=== PATIENT | female | born 2000 | race Caucasian/White ===

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

== ENCOUNTER 2020-07-22 00:58 | Emergency (ER) | payer OTHER, SELFPAY ==
[2020-07-22] VITALS (7 sets, daily range): BP systolic 103–116; BP diastolic 61–63; PULSE 62–73; RESP 15–24; TEMP 37.2; O2SAT 98–99
--- NOTE | 2020-07-22 01:20 | DI.RAD.S_ITS ---
PROCEDURE: XR CHEST 1V INDICATIONS: Acute altered mental status TECHNIQUE: One view of the chest was acquired. COMPARISON: None. FINDINGS: Surgical changes and devices: None. Lungs and pleura: Lungs are clear. No pleural effusions or pneumothorax. Mediastinum: Mediastinal contours appear normal. Heart size is normal. Bones and chest wall: No suspicious bony lesions. Overlying soft tissues appear unremarkable. IMPRESSION: No acute cardiopulmonary disease process. Dictated by: Jessica Holguin MD, PhD on 07/22/2020 at 9:10 Approved by: Jessica Holguin MD, PhD on 07/22/2020 at 9:10
[2020-07-22 01:29] LABS: Add Manual Diff / Slide Review NO; Basophils Absolute Auto 0 /uL (0-100); Basophils Percent Auto 0.6 % (0-2); Eosinophils Absolute Auto 200 /uL (0-450); Eosinophils Percent Auto 2.4 % (2-4); Hemoglobin 12.4 g/dL (12.0-16.0); Lymphocytes Absolute Auto 2400 /uL (1100-4500); Lymphocytes Percent Auto 30.6 % (25-40); Mean Corpuscular HGB Conc 33.4 % (30-36); Mean Corpuscular Hemoglobin 29.9 PG (26-34); Mean Corpuscular Volume 89.6 fL (80-100); Monocytes Absolute Auto 700 /uL (0-900); Monocytes Percent Auto 8.9 % (3-14); Neutrophils Absolute Auto 4600 /uL (1500-7000); Neutrophils Percent Auto 57.5 % (50-75); Platelet Count 222 X10^3/uL (150-400); Red Blood Cell Count 4.13 X10^6/uL (4.0-5.2); Red Cell Distribution Width 13.1 % (11.6-14.8)
[2020-07-22 01:35] LABS: Alanine Aminotransferase 15 IU/L (<35); Albumin 3.8 g/dL (3.5-5.0); Albumin Globulin Ratio 1.4 (1.0-2.8); Alkaline Phosphatase 113 U/L (38-126); Aspartate Aminotransferase 29 IU/L (14-36); BUN Creatinine Ratio 5.6 (6-22); Bilirubin Total 0.1 mg/dL (0.2-1.3); Blood Urea Nitrogen 4 mg/dL (7-17); Calcium 8.3 mg/dL (8.4-10.2); Carbon Dioxide 27 mmol/L (22-32); Chloride 106 mmol/L (98-107); Estimated Glomerular Filt Rate > 60.0 mL/min (>60); Globulin 2.8 g/dL (1.7-4.1); Glucose 119 mg/dL (70-100); HEMOLYSIS < 15 (0-50); Potassium 4.1 mmol/L (3.4-5.1); Sodium 137 mmol/L (137-145); Total Protein 6.6 g/dL (6.3-8.2)
--- NOTE | 2020-07-22 02:11 | DI.RAD.S_ITS ---
PROCEDURE: XR CERVICAL SPINE 2V OR 3V INDICATIONS: Trauma/fall/pain TECHNIQUE: 3 view(s) of the cervical spine were acquired. COMPARISON: None. FINDINGS: Bones: No fractures or dislocations to the T1 level. The lateral masses of C1 appear intact on the odontoid view. No suspicious bony lesions. Soft tissues: No prevertebral soft tissue swelling. IMPRESSION: No fracture. No osseous lesion. If symptoms and/or clinical suspicion for pathology persists, evaluation with MRI should be considered for further assessment. Dictated by: Jessica Holguin MD, PhD on 07/22/2020 at 9:10 Approved by: Jessica Holguin MD, PhD on 07/22/2020 at 9:11
--- NOTE | 2020-07-22 02:11 | DI.CT.S_ITS ---
PROCEDURE: CT HEAD/BRAIN WO CON INDICATIONS: Trauma/fall/pain/syncope TECHNIQUE: Noncontrast 4.5 mm thick angled axial sections acquired from the foramen magnum to the vertex, with coronal and sagittal reformats. For radiation dose reduction, the following was used: automated exposure control, adjustment of mA and/or kV according to patient size. COMPARISON: None. FINDINGS: Image quality: Excellent. CSF spaces: Basal cisterns are patent. No extra-axial fluid collections. Ventricles are normal in size and shape. Brain: No midline shift. No intracranial masses or hemorrhage. Terry-white matter interface is normal. Skull and face: Calvarium and visualized facial bones are intact, without suspicious lesions. Sinuses: Visualized sinuses and mastoids are clear. IMPRESSION: No acute intracranial disease process. Dictated by: Jessica Holguin MD, PhD on 07/22/2020 at 7:23 Approved by: Jessica Holguin MD, PhD on 07/22/2020 at 7:25
--- NOTE | 2020-07-22 02:12 | ED_ITS ---
HPI - Syncope General Chief Complaint: Syncope Stated Complaint: passed out, hit head on oven/poss seizure Time Seen by Provider: 07/22/20 02:02 Source: patient and family Mode of arrival: Ambulatory History of Present Illness HPI narrative: Patient here with mother. Mother picked up patient from her apartment. Witnessed syncopal episode by patient's roommate. Patient states she got up to get ready for bed. She had been up and walking around 11:00 p.m. tonight. She felt nauseous and next thing she knows she passed out. Hitting th e of an with her head on the way down. Episode of syncope lasted about 15 seconds according to room a. Eyes were rolling and all 4 limbs were shaking. No history of seizures. No history of pulmonary embolism. No history of arrhythmia. Mother states father had history of syncope episodes when he was in his 20s. Patient denies . Patient admits marijuana use tonight. But that is not new. Denies alcohol use tonight. Denies any pre event palpitations dizziness or any pain in the head or chest or abdomen or back. Denies any other drugs. Patient not postictal after event. No bowel or bladder incontinence. No tongue biting. No personal or family history of arrhythmias MD complaint: loss of consciousness Related Data Home Medications Medication Instructions Recorded Confirmed levonorgestrel 20 mcg/24 hours (6 INTRAUTERINE each 09/24/18 01/22/19 yrs) 52 mg intrauterine device Previous Rx's Medication Instructions Recorded clindamycin phosphate 1 % topical 1 applictn TOP DAILY #60 gram 11/21/19 gel doxycycline hyclate 100 mg capsule 100 mg PO BID #24 cap 11/21/19 Allergies Allergy/AdvReac Type Severity Reaction Status Date / Time No Known Drug Allergies Allergy Verified 01/22/19 15:06 Review of Systems Review of Systems Narrative: GENERAL: Denies chills, fatigue, malaise, fever, sweats. HEENT: Denies sinus pain, ear pain, sore throat, difficulty swallowing RESPIRATORY: Denies dyspnea, cough CARDIOVASCULAR: Denies chest pain, palpitations, edema, GASTROINTESTINAL: Denies nausea, vomiting, abdominal pain, diarrhea, constipation, melena. : Denies dysuria, frequency, hematuria MUSCULOSKELETAL: Complains muscle or bony pain SKIN: Denies rash, skin lesions NEUROLOGIC: Denies weakness, headache, numbness, change in speech, confusion ROS Unobtainable: All systems reviewed & are unremarkable except as noted in HPI and below Patient History Surgical History H/O external ear surgery Social History Smoking Status: Never smoker Smoking Status: Never smoker Substance Use Type: marijuana Exam Narrative Exam Narrative: GENERAL: patient appears stated age. Well-nourished, well- developed patient, in no distress, not toxic not dyspneic HEAD: Normocephalic. Mild tenderness to the right parietal scalp but no crepitus or step-off or skin injury/laceration or abrasion. No blood in the hair EYES: Pupils equal round and reactive. No scleral icterus. No injection no discharge ENT: Mucous membranes moist. No drooling no tongue elevation no trismus no malocclusion NECK: Trachea midline. No midline tenderness or step-off. There is mild paracervical muscle tenderness CARDIOVASCULAR: Regular rate and rhythm without murmurs, gallops, or rubs. RESPIRATORY: Clear to auscultation. Breath sounds equal bilaterally. No wheezes, rales, or rhonchi. GASTROINTESTINAL: Abdomen soft, non-tender, nondistended. EXTREMITIES: No gross deformities. Small excoriation linear tayo on right deltoid BACK: Nontender without deformity or crepitance. No flank tenderness. NEURO: AOx4. Clear speech no facial droop light touch intact to bilateral face and hands with strong equal food quality technician. SKIN: Warm and dry PSYCH: Not anxious, is cooperative Initial Vital Signs Initial Vital Signs: Vital Signs Temperature 99.0 F 07/22/20 01:08 Pulse Rate 69 07/22/20 01:08 Respiratory Rate 18 07/22/20 01:08 Blood Pressure 116/63 07/22/20 01:08 Pulse Oximetry 99 07/22/20 01:08 Course Course Course Narrative: No new issues during course of stay. Patient up and walking unassisted from her room to the bathroom and back. Orders Ordered: ED Orders 07/22/20 01:01 EKG-12 Lead Stat 07/22/20 01:15 Complete Blood Count AUTO DIFF Stat Comprehensive Metabolic Panel Stat D Dimer Stat Test Serum,Qual Stat Troponin & CK Cardiac Panel Stat 07/22/20 01:20 XR chest 1V Stat EKG-12 Lead Stat 07/22/20 02:11 CT head/brain wo con Stat XR cervical spine 2V or 3V Stat 07/22/20 02:52 Urine Drug Screen, Rapid Stat Reevaluation(s) Reevaluation #1: No new complaints during course of stay. No syncopal episodes or seizure episodes here. Reviewed results with patient and mother. They agree with discharge home and follow-up with primary care. Patient understands no operating machinery or driving until cleared by family doctor Time: 03:04 Consultations Consultation #1: Spoke with Dr. Carlos Pardo, primary care on-call for patient's primary group. Patient can be discharged home and will follow-up with patient this week for further testing and evaluation. No admission tonight Time: 03:01 Vital Signs Vital signs: Vital Signs - 8 hr 07/22/20 01:08 07/22/20 01:34 07/22/20 02:04 Temperature 99.0 F Pulse Rate 69 66 73 Respiratory Rate 18 15 Blood Pressure 116/63 Pulse Oximetry 99 99 98 07/22/20 02:05 07/22/20 02:31 07/22/20 02:52 Temperature Pulse Rate 73 64 64 Respiratory Rate 22 16 24 Blood Pressure 111/62 103/61 Pulse Oximetry 98 99 99 07/22/20 03:00 Temperature Pulse Rate 62 Respiratory Rate 22 Blood Pressure Pulse Oximetry 99 MDM - Syncope Differential Diagnosis Differential diagnosis: Likely syncope due to orthostatic hypotension, vasovagal syncope, pulmonary embolism, dehydration and other (Seizure) Lab Data Attestation: I reviewed the patient's lab results. Result diagrams: 07/22/20 01:15 07/22/20 01:15 Labs: Lab Results 07/22/20 07/22/20 07/22/20 Range/Units 01:15 01:15 01:15 WBC 8.0 (4.5-11.0) X10^3/uL RBC 4.13 (4.0-5.2) X10^6/uL Hgb 12.4 (12.0-16.0) g/dL Hct 37.0 (36-46) % MCV 89.6 (80-100) fL MCH 29.9 (26-34) PG MCHC 33.4 (30-36) % RDW 13.1 (11.6-14.8) % Plt Count 222 (150-400) X10^3/uL Neut % (Auto) 57.5 (50-75) % Lymph % (Auto) 30.6 (25-40) % Garland % (Auto) 8.9 (3-14) % Eos % (Auto) 2.4 (2-4) % Baso % (Auto) 0.6 (0-2) % Neut # (Auto) 4600 (1820-2976) /uL Lymph # (Auto) 2400 (0844-6869) /uL Garland # (Auto) 700 (0-900) /uL Eos # (Auto) 200 (0-450) /uL Baso # (Auto) 0 (0-100) /uL D-Dimer < 200 (<230) ng/mL Sodium 137 (137-145) mmol/L Potassium 4.1 (3.4-5.1) mmol/L Chloride 106 (98-107) mmol/L Carbon Dioxide 27 (22-32) mmol/L BUN 4 L (7-17) mg/dL Creatinine 0.71 (0.52-1.04) mg/dL Estimated GFR > 60.0 (>60) mL/min BUN/Creatinine Ratio 5.6 L (6-22) Glucose 119 H (70-100) mg/dL Calcium 8.3 L (8.4-10.2) mg/dL Total Bilirubin 0.1 L (0.2-1.3) mg/dL AST 29 (14-36) IU/L ALT 15 (<35) IU/L Alkaline Phosphatase 113 (38-126) U/L Total Creatine Kinase (30-135) U/L CK-MB (CK-2) CK-MB (CK-2) Rel Index Troponin I (0.01-0.034) ng/mL Total Protein 6.6 (6.3-8.2) g/dL Albumin 3.8 (3.5-5.0) g/dL Globulin 2.8 (1.7-4.1) g/dL Albumin/Globulin Ratio 1.4 (1.0-2.8) Serum , Qual (Negative) U Opiates 300ng/mL cut (Negative) Ur Oxycodone Screen (Negative) Urine Methadone Screen (Negative) Ur Barbiturates Screen (Negative) U Tricyclic Antidepress (Negative) Ur Phencyclidine Scrn (Negative) Ur Amphetamines Screen (Negative) U Methamphetamines Scrn (Negative) Ur MDMA Scrn (Ecstasy) (Negative) U Benzodiazepines Scrn (Negative) Urine Cocaine Screen (Negative) U Marijuana (THC) Screen (Negative) 07/22/20 07/22/20 07/22/20 Range/Units 01:15 01:15 02:52 WBC (4.5-11.0) X10^3/uL RBC (4.0-5.2) X10^6/uL Hgb (12.0-16.0) g/dL Hct (36-46) % MCV (80-100) fL MCH (26-34) PG MCHC (30-36) % RDW (11.6-14.8) % Plt Count (150-400) X10^3/uL Neut % (Auto) (50-75) % Lymph % (Auto) (25-40) % Garland % (Auto) (3-14) % Eos % (Auto) (2-4) % Baso % (Auto) (0-2) % Neut # (Auto) (2565-0955) /uL Lymph # (Auto) (4970-8918) /uL Garland # (Auto) (0-900) /uL Eos # (Auto) (0-450) /uL Baso # (Auto) (0-100) /uL D-Dimer (<230) ng/mL Sodium (137-145) mmol/L Potassium (3.4-5.1) mmol/L Chloride (98-107) mmol/L Carbon Dioxide (22-32) mmol/L BUN (7-17) mg/dL Creatinine (0.52-1.04) mg/dL Estimated GFR (>60) mL/min BUN/Creatinine Ratio (6-22) Glucose (70-100) mg/dL Calcium (8.4-10.2) mg/dL Total Bilirubin (0.2-1.3) mg/dL AST (14-36) IU/L ALT (<35) IU/L Alkaline Phosphatase (38-126) U/L Total Creatine Kinase 99 (30-135) U/L CK-MB (CK-2) TNP CK-MB (CK-2) Rel Index TNP Troponin I < 0.012 (0.01-0.034) ng/mL Total Protein (6.3-8.2) g/dL Albumin (3.5-5.0) g/dL Globulin (1.7-4.1) g/dL Albumin/Globulin Ratio (1.0-2.8) Serum , Qual Negative (Negative) U Opiates 300ng/mL cut Negative (Negative) Ur Oxycodone Screen Negative (Negative) Urine Methadone Screen Negative (Negative) Ur Barbiturates Screen Negative (Negative) U Tricyclic Antidepress Negative (Negative) Ur Phencyclidine Scrn Negative (Negative) Ur Amphetamines Screen Negative (Negative) U Methamphetamines Scrn Negative (Negative) Ur MDMA Scrn (Ecstasy) Negative (Negative) U Benzodiazepines Scrn Negative (Negative) Urine Cocaine Screen Negative (Negative) U Marijuana (THC) Screen Positive H (Negative) Urine Dip Bedside Urine Glucose Negative Bedside Urine Bilirubin - Negative Bedside Urine Ketone - Negative Urine Specific Sinclair 1.015 Bedside Urine Occult Blood - Negative Bedside Urine pH 7.0 Bedside Urine Protein - Negative Bedside Urine Urobilinogen - Negative Bedside Urine Nitrite - Negative Bedside Urine Leukocytes - Negative Esterase Imaging Data Chest x-ray: Radiologist's Impression: No significant abnormalities CT scan - head: Radiologist's Impression: No acute intracranial findings X-ray cervical spine: Radiologist's Impression: No acute finding ECG Data Attestation: I personally reviewed and interpreted this ECG as follows: Interpretation: Normal sinus rhythm normal EKG ventricular rate 69, no ST elevation or depression MDM Narrative Medical decision making narrative: Appropriate for discharge home for syncopal workup on outpatient basis with primary care. I did contact primary care on- call. Patient has low risk factors for arrhythmia or seizures. Patient at baseline at this time, not toxic at discharge. Patient and mother agree for follow-up and treatment and home observation. They understand no driving until cleared by primary care Discharge Plan Departure Patient Disposition: Home Clinical Impression: Syncope and collapse Contusion of scalp Qualifiers: Encounter type: initial encounter Qualified Code(s): S00.03XA - Contusion of scalp, initial encounter Instructions: DI for Syncope in Adults (Fainting), DI for Closed Head Injury Activity Restrictions/Additional Instructions: Return if worse or if any questions or concerns. See family doctor this week for recheck. No no no no driving or operating machinery until cleared by your family doctor. Prescriptions: No Action doxycycline hyclate 100 mg capsule 100 mg PO BID Qty: 24 RF: 0 clindamycin phosphate 1 % gel 1 applictn TOP DAILY Qty: 60 RF: 1 Mirena 20 mcg/24 hours (5 yrs) 52 mg intrauterine device Intrauterine RF: 0 Referrals: Christina King DO [Primary Care Provider] -
[2020-07-22 02:22] LABS: Creatine Kinase 99 U/L (30-135)
[2020-07-22 02:24] LABS: Pregnancy Test Serum,Qual Negative (Negative)
[2020-07-22 02:34] LABS: Troponin I < 0.012 ng/mL (0.01-0.034)
[2020-07-22 03:05] LABS: D Dimer < 200 ng/mL (<230)
[2020-07-22 03:12] LABS: Ur Creatinine 50 (Normal); Urine Tetrahydrocannabinol Positive (Negative); Urine pH 7 (Normal)
[2020-07-22 03:13] LABS: UR Morphine/Opiate cutoff 300 Negative (Negative); Urine Amphetamines Negative (Negative); Urine Barbiturates Negative (Negative); Urine Benzodiazepines Negative (Negative); Urine Cocaine Negative (Negative); Urine MDMA Negative (Negative); Urine Methadone Negative (Negative); Urine Methamphetamines Negative (Negative); Urine Oxycodone Negative (Negative); Urine Phencyclidine Negative (Negative); Urine Tricyclic Antidepressant Negative (Negative)
== END 2020-07-22 03:29 | disposition home or self-care (01) ==
PROVIDERS: Emergency Provider Emergency Medicine; Family Provider Family Medicine; PCP Family Medicine
DX: R55 Syncope and collapse (principal); S00.03XA Contusion of scalp, initial encounter; R41.82 Altered mental status, unspecified; F12.90 Cannabis use, unspecified, uncomplicated
CPT/HCPCS: 36415; 70450; 71045; 72040; 80053; 80305; 81003; 82550; 84484; 84703; 85025; 85379; 93005; 99284

== ENCOUNTER → 2025-06-16 07:51 | Outpatient (CLI) | payer OTHER, SELFPAY ==
[2025-06-16 09:20] LABS: Influenza A - CEPHEID Flu A POSITIVE (NEGATIVE); Influenza B - CEPHEID Flu B NEGATIVE (NEGATIVE)
[2025-06-16 09:21] LABS: COVID-19 CEPHEID 4-PLEX PCR Negative (Negative)
== END ==
PROVIDERS: Family Provider Family Medicine; PCP Family Medicine; Visit Provider Nurse Practitioner Family
DX: R05.1 Acute cough (principal)
CPT/HCPCS: 87637